=== PATIENT | female | born 1975 | race African-American/Black ===

== ENCOUNTER 2020-10-13 10:14 | Emergency (ER) | payer OTHER ==
[~2020-10-13 10:14] MED LIST: DIAZEPAM 5MG TAB5 MG PO; GABAPENTIN300 MG PO; PREDNISONE 20MG20 MG PO
== END 2020-10-13 13:04 | disposition home or self-care (01) ==
LOC: FER 10:14
DX: G89.18 Other acute postprocedural pain (principal); M79.671 Pain in right foot; E11.9 Type 2 diabetes mellitus without complications; Z85.3 Personal history of malignant neoplasm of breast; Z90.10 Acquired absence of unspecified breast and nipple; Z98.890 Other specified postprocedural states
CPT/HCPCS: 99283